=== PATIENT | female | born 1970 | race Caucasian/White ===

== ENCOUNTER 2017-12-18 14:18 | Emergency (ER) | END 2017-12-18 18:31 | disposition home or self-care (01) ==

== ENCOUNTER 2018-01-24 15:43 | Emergency (ER) | END 2018-01-24 18:21 | disposition home or self-care (01) ==

== ENCOUNTER 2018-01-31 16:40 | Emergency (ER) | END 2018-01-31 18:06 | disposition home or self-care (01) ==

== ENCOUNTER 2018-12-12 17:28 | Emergency (ER) | payer MEDICAID ==
[~2018-12-12] VITALS: Ht 162.6 cm; Wt 98.7 kg
[~2018-12-12 17:28] MED LIST: ACET325T33 PO; ACET500C5 PO; ALBU18HF INHALATION; AZIT250T PO; DOCU-144 PO; FLUT9.9S NASAL; GUAI-637 PO; IBUP-1542 PO; IBUP-1561 PO; MED4DP PO; POLY17PO6 PO
[2018-12-12 17:34] VITALS: Ht 162.6 cm; Wt 98.7 kg
[2018-12-12 19:51] VITALS: BP 145/79; PULSE 78; RESP 20
== END 2018-12-12 19:52 | disposition home or self-care (01) ==
LOC: FTE 17:28
DX: M79.672 Pain in left foot (principal); M77.32 Calcaneal spur, left foot
CPT/HCPCS: 73630; Z7502